=== PATIENT | female | born 1930 | race Two or more races ===

== ENCOUNTER 2019-09-15 12:15 | Observation (INO) | payer MEDICARE, MEDICAID ==
[~2019-09-15] VITALS: Ht 149.9 cm; Wt 49.9 kg
--- NOTE | 2019-09-15 12:15 | NUR ---
ED Nurse Note: Patient brought into ED by ambulance RA 60 c/o dizziness today, near syncopal episod at [facility] today 30 minutes prior to arrival to ED. BS 459 on the scene. patient is alert awake ambulatory, breathing unlabored and even, speaking in full sentences. patient on a hospital gown and on a store leader.
--- NOTE | 2019-09-15 13:04 | Emergency Room Report ---
History of Present Illness General Chief Complaint: Generalized Weakness Source: Patient Present Illness HPI Disclaimer: Please note that this report is being documented using [employer] technology. This can lead to erroneous entry secondary to incorrect interpretation by the dictating instrument. HPI: 88-year-old female with history of diabetes and dizziness presents for evaluation of near syncopal episode. Patient is primarily Farsi speaking and history and physical exam were performed with the use of an it application development manager. She presents from her adult daycare center. She is complaining of lightheadedness. No syncope, no head injury, no trauma reported. She has been treated for vertigo with meclizine in the past. States she feels off balance. She is also been complaining of nausea, vomiting and diarrhea for 2 days. Denies fever. Denies chest pain, shortness of breath, palpitations or abdominal pain. Blood sugar was found to be elevated at [facility]. Denies any other changes in her health. PMH: Diabetes, dizziness PSH: Reviewed Allergies: None reported Social Hx: None reported Allergies: Coded Allergies: No Known Allergies (Unverified , 09/15/19) Nursing Documentation-PMH Past Medical History: No History, Except For Review of Systems All Other Systems: negative except mentioned in HPI Physical Exam Vital Signs Date Time Temp Pulse Resp B/P (MAP) Pulse Ox O2 Delivery O2 Flow Rate FiO2 09/15/19 12:05 98.2 82 16 103/48 (66) 98 General: Awake and alert, no acute distress HEENT: NC/AT. EOMI. PERRLA. No nystagmus Cardiovascular: RRR. S1 and S2 normal. No murmur appreciated Resp: Normal work of breathing. No cough, wheezing or crackles appreciated Abdomen: Abdomen is soft, nondistended. Nontender Skin: Intact. No abrasions, laceration or rash over the exposed skin MSK: Normal tone and bulk. Moving all extremities. No obvious deformity. Neuro: Awake and alert. Mentating appropriately. Ambulating with steady gait Medical Decision Making Diagnostic Impression: Primary Impression: Dizzy Additional Impressions: Weakness Near syncope ER Course 88-year-old female presents for evaluation of near syncopal episode and elevated blood sugar readings at her adult daycare center. We will start a broad metabolic and infectious work-up. The patient is well-appearing at this time. She also complaining of nausea and vomiting. May be a viral syndrome, possibly influenza. Will start IV fluids and broad labs. Disposition depending on results. Laboratory Tests Test 09/15/19 13:00 09/15/19 13:10 09/15/19 13:15 White Blood Count 8.9 K/UL (4.8-10.8) Red Blood Count 3.86 M/UL (4.20-5.40) L Hemoglobin 11.5 G/DL (12.0-16.0) L Hematocrit 35.6 % (37.0-47.0) L Mean Corpuscular Volume 92 FL (80-99) Mean Corpuscular Hemoglobin 29.9 PG (27.0-31.0) Mean Corpuscular Hemoglobin Concent 32.4 G/DL (32.0-36.0) Red Cell Distribution Width 14.0 % (11.6-14.8) Platelet Count 167 K/UL (150-450) Mean Platelet Volume 9.4 FL (6.5-10.1) Neutrophils (%) (Auto) 55.9 % (45.0-75.0) Lymphocytes (%) (Auto) 29.6 % (20.0-45.0) Monocytes (%) (Auto) 7.7 % (1.0-10.0) Eosinophils (%) (Auto) 5.0 % (0.0-3.0) H Basophils (%) (Auto) 1.8 % (0.0-2.0) Sodium Level 141 MMOL/L (136-145) Potassium Level 4.8 MMOL/L (3.5-5.1) Chloride Level 104 MMOL/L (98-107) Carbon Dioxide Level 28 MMOL/L (21-32) Anion Gap 9 mmol/L (5-15) Blood Urea Nitrogen 31 mg/dL (7-18) H Creatinine 1.3 MG/DL (0.55-1.30) Estimate Glomerular Filtration Rate mL/min (>60) Glucose Level 141 MG/DL (74-106) H Calcium Level 9.3 MG/DL (8.5-10.1) Phosphorus Level 4.5 MG/DL (2.5-4.9) Magnesium Level 2.4 MG/DL (1.8-2.4) Total Bilirubin 0.1 MG/DL (0.2-1.0) L Aspartate Amino Transferase (AST) 15 U/L (15-37) Alanine Aminotransferase (ALT) 19 U/L (12-78) Alkaline Phosphatase 92 U/L (46-116) Troponin I 0.000 ng/mL (0.000-0.056) Total Protein 7.2 G/DL (6.4-8.2) Albumin 3.2 G/DL (3.4-5.0) L Globulin 4.0 g/dL Albumin/Globulin Ratio 0.8 (1.0-2.7) L Urine Color Pale yellow Urine Appearance Clear Urine pH 5 (4.5-8.0) Urine Specific [place] 1.010 (1.005-1.035) Urine Protein Negative (NEGATIVE) Urine Glucose (UA) 4+ (NEGATIVE) H Urine Ketones Negative (NEGATIVE) Urine Blood Negative (NEGATIVE) Urine Nitrite Negative (NEGATIVE) Urine Bilirubin Negative (NEGATIVE) Urine Urobilinogen Normal MG/DL (0.0-1.0) Urine Leukocyte Esterase Negative (NEGATIVE) Acetone Level Negative (NEGATIVE) Microbiology Date/Time Source Procedure Growth Status 09/15/19 13:15 Nasal Nares - Final Complete 09/15/19 13:15 Nasal Nares - Final Complete EKG Diagnostic Results EKG Time: 13:00 Rate: bradycardiac Rhythm: NSR ST Segments: no acute changes Other Impression Sinus bradycardia, left axis deviation, Q waves in the posterior lateral and anterior leads. No ST segment changes Rhythm Strip Diag. Results Rhythm Strip Time: 13:00 EP Interpretation: yes Rate: 50s Rhythm: NSR, no PVC's, no ectopy Reevaluation Time: 15:02 Last Vital Signs Date Time Temp Pulse Resp B/P (MAP) Pulse Ox O2 Delivery O2 Flow Rate FiO2 09/15/19 12:05 98.2 82 16 103/48 (66) 98 Reevaluation Impression Labs largely unremarkable. The patient is sinus bradycardia. No acute evidence of ischemia. Will place in observation and further evaluation of her episodic dizziness. Blood sugar appears to have normalized. Patient was found to be agitated. She was no longer complaining of dizziness and able to ambulate though she did say that she may have hit her head multiple times recently. Will obtain a CT scan of the head. Will then admit to observation for near syncope/dizziness. CT scan does not show acute injury. Will place in observation. Disposition: PLACE IN OBSERVATION Condition: Stable Neftaly Llanos MD Sep 15, 2019 13:04
[2019-09-15 13:18] LABS: BASOPHILS % (AUTO) 1.8 % (0.0-2.0); HEMATOCRIT 35.6 % (37.0-47.0); HEMOGLOBIN 11.5 G/DL (12.0-16.0); LYMPHOCYTES % (AUTO) 29.6 % (20.0-45.0); MEAN CORPUSCULAR VOLUME 92 FL (80-99); MONOCYTES % (AUTO) 7.7 % (1.0-10.0); NEUTROPHILS % (AUTO) 55.9 % (45.0-75.0); PLATELET COUNT 167 K/UL (150-450); RED BLOOD COUNT 3.86 M/UL (4.20-5.40); WHITE BLOOD COUNT 8.9 K/UL (4.8-10.8)
--- NOTE | 2019-09-15 13:22 | NUR ---
patients daughter aniyah called #[phone]
[2019-09-15 13:24] VITALS: BP 121/65
[2019-09-15 13:25] LABS: APPEARANCE,URINE CLEAR; BILIRUBIN, URINE NEGATIVE (NEGATIVE); COLOR,URINE PALE YELLOW; GLUCOSE, URINE (UA) 4+ (NEGATIVE); KETONES,URINE NEGATIVE (NEGATIVE); LEUKOCYTE ESTERASE ,URINE NEGATIVE (NEGATIVE); NITRITE,URINE NEGATIVE (NEGATIVE); PH,URINE 5 (4.5-8.0); PROTEIN,URINE NEGATIVE (NEGATIVE); UROBILINOGEN,URINE NORMAL MG/DL (0.0-1.0)
[2019-09-15 13:36] LABS: ANION GAP 9 mmol/L (5-15); BLOOD UREA NITROGEN 31 mg/dL (7-18); CALCIUM 9.3 MG/DL (8.5-10.1); CARBON DIOXIDE 28 MMOL/L (21-32); CHLORIDE 104 MMOL/L (98-107); CREATININE 1.3 MG/DL (0.55-1.30); POTASSIUM 4.8 MMOL/L (3.5-5.1); SODIUM 141 MMOL/L (136-145)
[2019-09-15 13:40] LABS: ALANINE AMINOTRANSFERASE 19 U/L (12-78); ALBUMIN 3.2 G/DL (3.4-5.0); ALBUMIN/GLOBULIN RATIO 0.8 (1.0-2.7); ALKALINE PHOSPHATASE 92 U/L (46-116); ASPARTATE AMINO TRANSFERASE 15 U/L (15-37); BILIRUBIN,TOTAL 0.1 MG/DL (0.2-1.0); PHOSPHORUS 4.5 MG/DL (2.5-4.9)
[2019-09-15] MEDS ORDERED: ASPIR 8181 MG ORAL (15:11)
[2019-09-15] MEDS ORDERED: ABILIFY2 MG ORAL (15:11)
[2019-09-15] MEDS ORDERED: XANAX0.25 MG ORAL (15:11)
[2019-09-15] MEDS ORDERED: LEXAPRO10 MG ORAL (15:15)
[2019-09-15] MEDS ORDERED: GABAPENTIN300 MG ORAL (15:15)
[2019-09-15] MEDS ORDERED: JANUVIA25 MG ORAL (15:21)
[2019-09-15] MEDS ORDERED: CYTOMEL5 MCG ORAL (15:21)
[2019-09-15] MEDS ORDERED: XIGDUO XR 5 MG1 EAC1 PO (15:28)
[2019-09-15] MEDS ORDERED: ROPINIROLE HCL2 MG PO (15:28)
[2019-09-15] MEDS ORDERED: PRAVASTATIN SOD20 M1 ORAL (15:28)
[2019-09-15] MEDS ORDERED: QUETIAPINE FUMA50 MG ORAL (15:28)
[2019-09-15] MEDS ORDERED: NEXIUM40 MG ORAL (15:28)
[2019-09-15] MEDS ORDERED: MYRBETRIQ50 MG PO (15:28)
[2019-09-15] MEDS ORDERED: MIRTAZAPINE7.5 MG ORAL (15:28)
[2019-09-15] MEDS ORDERED: MECLIZINE HCL25 MG ORAL (15:28)
[2019-09-15 16:23] VITALS: BP 139/58
[2019-09-15] MEDS ORDERED: LORazepam Inj 2mg/ml 1ml IV ONE (16:45)
--- NOTE | 2019-09-15 17:55 | Diagnostic Imaging Report ---
Indications: Dizziness and syncopal episode Technique: Spiral acquisitions obtained through the brain. Angled axial and coronal 5 x 5 mm slices were reconstructed. Total dose length product 1263 mGycm. CTDI vol(s) 60 mGy. Dose reduction achieved using automated exposure control Comparison: None. Findings: There is age-related enlargement of the ventricles and extra-axial CSF spaces. There is periventricular deep white matter low-attenuation, consistent with chronic microvascular ischemic change. No acute intracranial hemorrhage or edema. No mass effect nor midline shift. The calvarium is intact. There is minimal right mastoid opacification. There is evidence of prior bilateral cataract surgery. Impression: Chronic and age-related changes. Negative for acute intracranial bleed or mass effect Right mastoid disease incidentally noted This agrees with the preliminary interpretation provided overnight by [facility]. The CT scanner at [facility] is accredited by the [employer] [place] [employer] and the scans are performed using protocols designed to limit radiation exposure to as low as reasonably achievable to attain images of sufficient resolution adequate for diagnostic evaluation.
--- NOTE | 2019-09-15 18:38 | NUR ---
ED Nurse Note: patient transferred to 2w with all of her belongings on ACLS protocol, endorsed all plan of care to Tiffanie GARDNER.
[2019-09-15 18:45] VITALS: BP 159/71
--- NOTE | 2019-09-15 18:45 | NUR ---
NURSE NOTES: Received patient from ED. Placed on cardiac bed, patient appears lethargic, on room air. In no respiratory distress. Belongings checked, upper and lower dentured with patient. No facial grimace at this time. Will admit to SDU standard level of care.
--- NOTE | 2019-09-15 19:10 | NUR ---
NURSE NOTES: Pt report received from SUGAR RN BRAD. pt appears stable, vital signs stable. pt is alert and oriented times 2. pt is on classroom monitor showing NSR, no cardiac distress noted. pt is on RA, able to sat at 100%, no resp distress noted. pt bed is low, locked, armed, call light within easy reach, bed rails up times 3. will follow plan of care.
--- NOTE | 2019-09-15 19:30 | NUR ---
NURSE NOTES: Called MD Rivera for admitting orders. awaiting call back/ awaiting new orders.
[2019-09-15 20:00] VITALS: BP 159/71
--- NOTE | 2019-09-15 20:00 | NUR ---
NURSE NOTES: Spoke with MD Rivera. stated pts admitting diagnosis, meds in ER, live vital signs, and pts current condition, and home meds. will put admitting orders.
[2019-09-15] MEDS ORDERED: NovoLOG Insulin Flexpen SUBQ SCH ×2 (20:30→21:00)
[2019-09-15] MEDS ORDERED: Meclizine 25mg tab ORAL PRN (20:30)
[2019-09-15] MEDS: NovoLOG Insulin Flexpen SUBQ SCH (21:00)
--- NOTE | 2019-09-15 21:36 | NUR ---
NURSE NOTES: Pt blood sugar finger stick is 41. however, pt vital signs is BP 148/72, HR 62, O2 98% room air, resp 19, cindy signs are stable. pt is easily abusable no name and able to track RNs figure with no complications. pt is alert and oriented times 2, no neuro deficit from. will follow hypoglycemic protocol. will recheck BS fingerstick in 15 - 20 min. Pt is stable. Addendum: 09/16/19 at 0540 by TOMASZ BENAVIDES RN NURSE NOTES: Pt blood sugar finger stick is 41. however, pt vital signs is BP 148/72, HR 62, O2 98% room air, resp 19, cindy signs are stable. pt is easily abusable to name and able to track RNs figure with no complications. pt is alert and oriented times 2, no neuro deficit from. will follow hypoglycemic protocol. will recheck BS fingerstick in 15 - 20 min. Pt is stable. Addendum: 09/16/19 at 0736 by TOMASZ BENAVIDES RN NURSE NOTES: Pt blood sugar finger stick is 41. however, pt vital signs is BP 148/72, HR 62, O2 98% room air, resp 19, cindy signs are stable. pt is easily arousable to name and able to track RNs figure with no complications. pt is alert and oriented times 2, no neuro deficit from. will follow hypoglycemic protocol. will recheck BS fingerstick in 15 - 20 min. Pt is stable.
[2019-09-15] MEDS: Heparin 5000 units/ml inj SUBQ SCH (21:41)
--- NOTE | 2019-09-15 21:51 | History & Physical ---
History and Physical History & Physicial [facility] INTERNAL MEDICINE HISTORY & PHYSICAL Patient Name: Luz Gonsalez Unit Number: [id number] Date of : 1930 Patient Status: Admitted Inpatient Attending Doctor: Nicola Rivera MD ER HPI - General History of Present Illness General Chief Complaint: Generalized Weakness Source: Patient Present Illness HPI 88-year-old female with history of diabetes and dizziness presents for evaluation of near syncopal episode. She presents from her adult daycare center. She is complaining of lightheadedness. No syncope, no head injury, no trauma reported. She has been treated for vertigo with meclizine in the past. States she feels off balance. She is also been complaining of nausea, vomiting and diarrhea for 2 days. Denies fever. Denies chest pain, shortness of breath , palpitations or abdominal pain. Blood sugar was found to be elevated at [facility]. Denies any other changes in her health. PMH: Diabetes, dizziness PSH: Reviewed Allergies: None reported Social Hx: None reported Allergies: Coded Allergies: No Known Allergies (Unverified , 09/15/19) Nursing Documentation-PMH Past Medical History: No History, Except For ER ROS - General Review of Systems All Other Systems: negative except mentioned in HPI ER Physical Exam - General Physical Exam Vital Signs Date Time Temp Pulse Resp B/P (MAP) Pulse Ox O2 Delivery O2 Flow Rate FiO2 09/15/19 12:05 98.2 82 16 103/48 (66) 98 General: Awake and alert, no acute distress HEENT: NC/AT. EOMI. PERRLA. No nystagmus Cardiovascular: RRR. S1 and S2 normal. No murmur appreciated Resp: Normal work of breathing. No cough, wheezing or crackles appreciated Abdomen: Abdomen is soft, nondistended. Nontender Skin: Intact. No abrasions, laceration or rash over the exposed skin MSK: Normal tone and bulk. Moving all extremities. No obvious deformity. Neuro: Awake and alert. Mentating appropriately. Ambulating with steady gait ER Procedures - General Procedures ER MDM/Plan Medical Decision Making Diagnostic Impression: Primary Impression: Dizzy Additional Impressions: Weakness Near syncope ER Course 88-year-old female presents for evaluation of near syncopal episode and elevated blood sugar readings at her adult daycare center. We will start a broad metabolic and infectious work-up. The patient is well-appearing at this time. She also complaining of nausea and vomiting. May be a viral syndrome, possibly influenza. Will start IV fluids and broad labs. Disposition depending on results. Laboratory Tests Test 09/15/19 13:00 09/15/19 13:10 09/15/19 13:15 White Blood Count 8.9 K/UL (4.8-10.8) Red Blood Count 3.86 M/UL (4.20-5.40) L Hemoglobin 11.5 G/DL (12.0-16.0) L Hematocrit 35.6 % (37.0-47.0) L Mean Corpuscular Volume 92 FL (80-99) Mean Corpuscular Hemoglobin 29.9 PG (27.0-31.0) Mean Corpuscular Hemoglobin Concent 32.4 G/DL (32.0-36.0) Red Cell Distribution Width 14.0 % (11.6-14.8) Platelet Count 167 K/UL (150-450) Mean Platelet Volume 9.4 FL (6.5-10.1) Neutrophils (%) (Auto) 55.9 % (45.0-75.0) Lymphocytes (%) (Auto) 29.6 % (20.0-45.0) Monocytes (%) (Auto) 7.7 % (1.0-10.0) Eosinophils (%) (Auto) 5.0 % (0.0-3.0) H Basophils (%) (Auto) 1.8 % (0.0-2.0) Sodium Level 141 MMOL/L (136-145) Potassium Level 4.8 MMOL/L (3.5-5.1) Chloride Level 104 MMOL/L (98-107) Carbon Dioxide Level 28 MMOL/L (21-32) Anion Gap 9 mmol/L (5-15) Blood Urea Nitrogen 31 mg/dL (7-18) H Creatinine 1.3 MG/DL (0.55-1.30) Estimate Glomerular Filtration Rate mL/min (>60) Glucose Level 141 MG/DL (74-106) H Calcium Level 9.3 MG/DL (8.5-10.1) Phosphorus Level 4.5 MG/DL (2.5-4.9) Magnesium Level 2.4 MG/DL (1.8-2.4) Total Bilirubin 0.1 MG/DL (0.2-1.0) L Aspartate Amino Transferase (AST) 15 U/L (15-37) Alanine Aminotransferase (ALT) 19 U/L (12-78) Alkaline Phosphatase 92 U/L (46-116) Troponin I 0.000 ng/mL (0.000-0.056) Total Protein 7.2 G/DL (6.4-8.2) Albumin 3.2 G/DL (3.4-5.0) L Globulin 4.0 g/dL Albumin/Globulin Ratio 0.8 (1.0-2.7) L Urine Color Pale yellow Urine Appearance Clear Urine pH 5 (4.5-8.0) Urine Specific [place] 1.010 (1.005-1.035) Urine Protein Negative (NEGATIVE) Urine Glucose (UA) 4+ (NEGATIVE) H Urine Ketones Negative (NEGATIVE) Urine Blood Negative (NEGATIVE) Urine Nitrite Negative (NEGATIVE) Urine Bilirubin Negative (NEGATIVE) Urine Urobilinogen Normal MG/DL (0.0-1.0) Urine Leukocyte Esterase Negative (NEGATIVE) Acetone Level Negative (NEGATIVE) Microbiology Date/Time Source Procedure Growth Status 09/15/19 13:15 Nasal Nares - Final Complete 09/15/19 13:15 Nasal Nares - Final Complete EKG Diagnostic Results EKG Time: 13:00 Rate: bradycardiac Rhythm: NSR ST Segments: no acute changes Other Impression Sinus bradycardia, left axis deviation, Q waves in the posterior lateral and anterior leads. No ST segment changes Rhythm Strip Diag. Results Rhythm Strip Time: 13:00 EP Interpretation: yes Rate: 50s Rhythm: NSR, no PVC's, no ectopy Reevaluation Time: 15:02 Last Vital Signs Date Time Temp Pulse Resp B/P (MAP) Pulse Ox O2 Delivery O2 Flow Rate FiO2 09/15/19 12:05 98.2 82 16 103/48 (77) 98 ASSESSMENT pre syncope dehydration weakness sinus bradycardia hx dizziness DM HLD hypothyroidism PLAN: tele monitor am troponin, ECG TTE IVF check TSH, Free T4 orthostatic vital sign resume home meds ISS electrolyte replete as needed over 70 spent today. over 50%SPENT IN COORDINATION OF CARE AND COUNSELING. D/W STAFF Nicola Rivera MD Sep 15, 2019:51
--- NOTE | 2019-09-15 22:10 | NUR ---
NURSE NOTES: Pt Blood sugar finger stick is now 171, post admin dextrose 50ML IV and 1 cup apple juice with 2 added sugars. vital signs are BP 140/70, HR 65, O2 98%, resp 20. pt is still alert and oriented times 2 able to follow/ trach RNs figure, pt is still easily abusable. cindy sings stable, pt is stable. will continue to monitor. Addendum: 09/16/19 at 0735 by TOMASZ BENAVIDES RN NURSE NOTES: Pt Blood sugar finger stick is now 171, post admin dextrose 50ML IV and 1 cup apple juice with 2 added sugars. vital signs are BP 140/70, HR 65, O2 98%, resp 20. pt is still alert and oriented times 2 able to follow/ trach RNs figure, pt is still easily arousable. cidny signs stable, pt is stable. will continue to monitor.
[2019-09-16] VITALS: BP 110/62
--- NOTE | 2019-09-16 00:40 | NUR ---
NURSE NOTES: Pt blood sugar finger stick is 45. however, pt vital signs is BP 120/74, HR 61, O2 99% room air, resp 20, cindy signs are stable. pt is easily abusable no name and able to track RNs figure with no complications. pt is alert and oriented times 2, no neuro deficit noted. will follow hypoglycemic protocol. will recheck BS fingerstick in 15 - 20 min. will admin dextrose 50ML and 1 apple juice with 3 added pack sugar. Pt is stable. Addendum: 09/16/19 at 0540 by TOMASZ BENAVIDES RN NURSE NOTES: Pt blood sugar finger stick is 45. however, pt vital signs is BP 120/74, HR 61, O2 99% room air, resp 20, cindy signs are stable. pt is easily abusable to name and able to track RNs figure with no complications. pt is alert and oriented times 2, no neuro deficit noted. will follow hypoglycemic protocol. will recheck BS fingerstick in 15 - 20 min. will admin dextrose 50ML and 1 apple juice with 3 added pack sugar. Pt is stable. Addendum: 09/16/19 at 0735 by TOMASZ BENAVIDES RN NURSE NOTES: Pt blood sugar finger stick is 45. however, pt vital signs is BP 120/74, HR 61, O2 99% room air, resp 20, cindy signs are stable. pt is easily arousable to name and able to track RNs figure with no complications. pt is alert and oriented times 2, no neuro deficit noted. will follow hypoglycemic protocol. will recheck BS fingerstick in 15 - 20 min. will admin dextrose 50ML and 1 apple juice with 3 added pack sugar. Pt is stable.
--- NOTE | 2019-09-16 01:00 | NUR ---
NURSE NOTES: admin dextrose 50ML and 1 apple juice with 3 added pack sugar.
--- NOTE | 2019-09-16 01:13 | NUR ---
NURSE NOTES: Spoke with MD santiago. reported Pts having repeated hypo glycemic episodes. (refer to previous notes for details.) MD switch fluids to D5NS at same rate and DC Januvia and METFORMIN meds. pt remains stable.
--- NOTE | 2019-09-16 01:30 | NUR ---
NURSE NOTES: Pt Blood sugar finger stick is now 134, post admin dextrose 50ML IV and 1 cup apple juice with 2 added sugars. vital signs are BP 132/78, HR 63, O2 99%, resp 22. pt is still alert and oriented times 2 able to follow/ trach RNs figure, pt is still easily abusable. cindy sings stable, pt is stable. will continue to monitor. Addendum: 09/16/19 at 0715 by TOMASZ BENAVIDES RN NURSE NOTES: Pt Blood sugar finger stick is now 134, post admin dextrose 50ML IV and 1 cup apple juice with 2 added sugars. vital signs are BP 132/78, HR 63, O2 99%, resp 22. pt is still alert and oriented times 2 able to follow/ trach RNs figure, pt is still easily arousable. cindy signs stable, pt is stable. will continue to monitor.
--- NOTE | 2019-09-16 01:40 | NUR ---
NURSE NOTES: Spoke with Bronwyn from [facility] [employer]. requested to have D5 IV fluid verified.
[2019-09-16] MEDS: D5NS 1,000 ML IV SCH ×2 (01:53→16:32)
[2019-09-16 04:00] VITALS: BP 137/71
--- NOTE | 2019-09-16 05:36 | NUR ---
NURSE NOTES: Pt blood sugar finger stick is 52. however, pt vital signs is BP 136/78, HR 663, O2 98% room air, resp 21, cindy signs are stable. pt is easily abusable to name and able to track RNs figure with no complications. pt is alert and oriented times 2, no neuro deficit noted. will follow hypoglycemic protocol. will recheck BS fingerstick in 15 - 30 min. will admin dextrose 50ML and 1 apple juice with 3 added pack sugar. Pt is stable. Addendum: 09/16/19 at 0541 by TOMASZ BENAVIDES RN NURSE NOTES: Pt blood sugar finger stick is 52. however, pt vital signs is BP 136/78, HR 63, O2 98% room air, resp 21, cindy signs are stable. pt is easily abusable to name and able to track RNs figure with no complications. pt is alert and oriented times 2, no neuro deficit noted. will follow hypoglycemic protocol. will recheck BS fingerstick in 15 - 30 min. will admin dextrose 50ML and 1 apple juice with 3 added pack sugar. Pt is stable. Addendum: 09/16/19 at 0642 by TOMASZ BENAVIDES RN NURSE NOTES: Pt blood sugar finger stick is 52. however, pt vital signs is BP 136/78, HR 73, O2 98% room air, resp 21, cindy signs are stable. pt is easily abusable to name and able to track RNs figure with no complications. pt is alert and oriented times 2, no neuro deficit noted. will follow hypoglycemic protocol. will recheck BS fingerstick in 15 - 30 min. will admin dextrose 50ML and 1 apple juice with 3 added pack sugar. Pt is stable. Addendum: 09/16/19 at 0541 by TOMASZ BENAVIDES RN NURSE NOTES: Pt blood sugar finger stick is 52. however, pt vital signs is BP 136/78, HR 63, O2 98% room air, resp 21, cindy signs are stable. pt is easily abusable to name and able to track RNs figure with no complications. pt is alert and oriented times 2, no neuro deficit noted. will follow hypoglycemic protocol. will recheck BS fingerstick in 15 - 30 min. will admin dextrose 50ML and 1 apple juice with 3 added pack sugar. Pt is stable. Addendum: 09/16/19 at 0714 by TOMASZ BENAVIDES RN NURSE NOTES: Pt blood sugar finger stick is 52. however, pt vital signs is BP 136/78, HR 63, O2 98% room air, resp 21, cindy signs are stable. pt is easily arousable to name and able to track RNs figure with no complications. pt is alert and oriented times 2, no neuro deficit noted. will follow hypoglycemic protocol. will recheck BS fingerstick in 15 - 30 min. will admin dextrose 50ML and 1 apple juice with 3 added pack sugar. Pt is stable.
[2019-09-16] MEDS: NovoLOG Insulin Flexpen SUBQ SCH ×2 (05:38→12:53)
--- NOTE | 2019-09-16 05:40 | NUR ---
NURSE NOTES: admin dextrose 50ML IV and 1 apple juice with 3 added pack sugar.
[2019-09-16 06:01] LABS: ALANINE AMINOTRANSFERASE 18 U/L (12-78); ALBUMIN 2.8 G/DL (3.4-5.0); ALBUMIN/GLOBULIN RATIO 0.8 (1.0-2.7); ALKALINE PHOSPHATASE 78 U/L (46-116); ANION GAP 7 mmol/L (5-15); ASPARTATE AMINO TRANSFERASE 18 U/L (15-37); BILIRUBIN,TOTAL 0.2 MG/DL (0.2-1.0); BLOOD UREA NITROGEN 25 mg/dL (7-18); CALCIUM 8.8 MG/DL (8.5-10.1); CARBON DIOXIDE 28 MMOL/L (21-32); CHLORIDE 108 MMOL/L (98-107); POTASSIUM 4.3 MMOL/L (3.5-5.1); SODIUM 143 MMOL/L (136-145)
--- NOTE | 2019-09-16 06:10 | NUR ---
NURSE NOTES: Pt Blood sugar finger stick is now 136, post admin dextrose 50ML IV and 1 cup apple juice with 2 added sugars. vital signs are BP 128/81, HR 63, O2 98%, resp 20. pt is still alert and oriented times 2 able to follow/ trach RNs figure, pt is still easily abusable. cindy sings stable, pt is stable. will continue to monitor. Addendum: 09/16/19 at 0647 by TOMASZ BENAVIDES RN NURSE NOTES: Pt Blood sugar finger stick is now 136, post admin dextrose 50ML IV and 1 cup apple juice with 2 added sugars. vital signs are BP 128/81, HR 63, O2 98%, resp 20. pt is still alert and oriented times 2 able to follow/ trach RNs figure, pt is still easily arousable. cindy sings stable, pt is stable. will continue to monitor.
[2019-09-16] MEDS ORDERED: sitaGLIPtin 25mg tab ORAL SCH (06:30)
[2019-09-16] MEDS ORDERED: metFORMIN 500mg tab ORAL SCH (06:30)
[2019-09-16] MEDS ORDERED: NovoLOG Insulin Flexpen SUBQ SCH (06:30)
--- NOTE | 2019-09-16 07:32 | NUR ---
HAND-OFF: Report given to JOSH TRINIDAD RN. Pt remains sttable. public information coordinator brought breakfast to pt.
--- NOTE | 2019-09-16 07:33 | NUR ---
NURSE NOTES: Received patient in bed. Asleep, in no apparent distress. On continuous IVF per order. Will continue plan of care.
[2019-09-16 08:00] VITALS: BP 140/78
[2019-09-16] MEDS: Heparin 5000 units/ml inj SUBQ SCH (09:00)
--- NOTE | 2019-09-16 11:18 | NUR ---
NURSE NOTES: Spoke with Dr. Rivera via telephone. MD said that he will be here in the afternoon. Informed MD that patient's family kept on calling and wanting the patient to be discharge today.
[2019-09-16 12:00] VITALS: BP 133/63
--- NOTE | 2019-09-16 12:59 | NUR ---
CASE MANAGEMENT: 88 Y/O FEMALE FROM [facility] CC: DIZZINESS SI: GENERALIZED WEAKNESS 98.2 16 70 121/65 100% ON RA URINE PROTEIN 4+ URINE GLUCOSE 141 BUN 31 IS: NS [address] HEAD ~~~~2 WE[facility] BRAD
--- NOTE | 2019-09-16 13:38 | NUR ---
NURSE NOTES: Dr. Rivera at bedside.
--- NOTE | 2019-09-16 13:49 | NUR ---
NURSE NOTES: Dr. Rivera discussed plan of care with patient's daughter via telephone.
--- NOTE | 2019-09-16 13:52 | General Progress Note ---
Progress Note Progress Note ECHO , ECG, troponin no significant findings hypoglycemia was the most likely etiology for near syncope. hypoglycemic multiple time given D50 and started on D5. metformin and januvia held. d/w daughter. with hold januvia upon DC. may resume metformin with meals daughter will inform MD at the [facility] [place] operated by [facility] DM med management. Nicola Rivera MD [phone] Nicola Rivera MD Sep 16, 2019 13:52
--- NOTE | 2019-09-16 15:13 | NUR ---
NURSE NOTES: Telephone report given to Coco Ann [facility] cytogenetics laboratory manager/Polly.
--- NOTE | 2019-09-16 15:35 | NUR ---
NURSE NOTES: Called patient's daughter, informed regarding discharge order.
[2019-09-16 16:00] VITALS: BP 145/86
--- NOTE | 2019-09-16 17:01 | NUR ---
NURSE NOTES: Report given to [facility] ambulance staff/Ingrid van list reviewed and gave to [facility] staff.
[2019-09-16] MEDS ORDERED: D5NS 1000ml IV ONE (17:14)
[2019-09-16] MEDS ORDERED: 1/2 NS 1000ml IV ONE (17:14)
--- NOTE | 2019-09-16 17:15 | NUR ---
INTER-FACILITY TRANSFER: Patient transferred to [facility], per Nicole. Report given to [facility] ambulance staff. Belongings verified upon transferr and given to [facility] ambulance staff. Family/S.O. notified of transfer. Remains room air, in stable condition.
== END 2019-09-16 17:15 | disposition home or self-care (01) ==
LOC: EDBD 12:15 → EMR 16:15 → INTOOBSV 16:18 → 2W 16:18 → EDBEDREQ 17:33 → 2W 18:43
DX: R42 Dizziness and giddiness (principal); R11.2 Nausea with vomiting, unspecified; R19.7 Diarrhea, unspecified; E11.649 Type 2 diabetes mellitus with hypoglycemia without coma; R53.1 Weakness; R00.1 Bradycardia, unspecified; E78.5 Hyperlipidemia, unspecified; E03.9 Hypothyroidism, unspecified; Z79.84 Long term (current) use of oral hypoglycemic drugs
CPT/HCPCS: 36415 ×2; 70450; 80053 ×2; 81003; 82009; 82962 ×2; 83036; 83735; 84100; 84439; 84443; 84484 ×2; 85025; 86710; 93005 ×2; 93306; 96361; 96365; 96366; 96374; 99284; J1644; J1815